=== PATIENT | female | born 1980 | race Two or more races ===

== ENCOUNTER 2024-11-07 09:50 | Emergency (ER) | payer OTHER ==
[~2024-11-07] VITALS: Ht 160 cm; Wt 55.3 kg
[2024-11-07] MEDS ORDERED: PROGESTERONE200 MG PO (09:59)
[2024-11-07] MEDS ORDERED: CLIMARA1 EAC5 TD (09:59)
[2024-11-07] MEDS ORDERED: KETOROLAC TROMETHAMINE 30 MG VIAL ONE (10:43)
[2024-11-07] MEDS ORDERED: FAMOTIDINE/PF 20 MG/2 ML VIAL ONE (10:43)
[2024-11-07] MEDS ORDERED: 0.9 % SODIUM CHLORIDE 1,000 ML IV SCH (10:45)
[2024-11-07] MEDS ORDERED: FAMOTIDINE/PF 20 MG in 0.9 % SODIUM CHLORIDE 8 ML IV PUSH ONE (10:45)
[2024-11-07] MEDS ORDERED: KETOROLAC TROMETHAMINE 15 MG VIAL IU ONE (10:45)
[2024-11-07 11:09] LABS: BASO % 0.5 % (0.1-1.2); EOS # 0.27 (0.04-0.54); EOS % 2.5 % (0.7-7.0); LYMPH # 2.24 (1.18-3.74); LYMPH % 21.1 % (19.3-53.1); MEAN PLATELET VOLUME 10.10 fl (9.4-12.4); MONO # 0.76 (0.24-0.82); MONO % 7.1 % (4.7-12.5); NEUT # 7.30 (1.56-6.13); NEUT % 68.6 % (34.0-71.1); RED CELL DISTRIBUTION WIDTH 12.9 % (11.6-14.4)
[2024-11-07 11:21] LABS: INR 1.0
[2024-11-07 11:28] LABS: ALT/SGPT 18 U/L (12-78); AST/SGOT 14 U/L (15-37); BILIRUBIN TOTAL 0.68 mg/dL (0.3-1.2); BUN CREA RATIO 14 (7.0-25.0); CREATININE SERUM 0.74 mg/dL (0.55-1.02); GFR 84.87; GLOBULINA 3.7 G/DL (2.4-3.5); GLUCOSE FASTING 84 mg/dL (65-100); OSMOLALITY SERUM 285 MOSM/KG (275-295)
[2024-11-07 11:29] LABS: HCG QUANTITATIVE < 1 mUI/mL (1-3)
[2024-11-07] MEDS ORDERED: CIPROFLOXACIN IN 5 % DEXTROSE 200 ML IV ONE (13:00)
[2024-11-07 13:04] LABS: URINE APPEARANCE Clear; URINE BILIRRUBIN Negative (NEGATIVE); URINE BLOOD Negative; URINE COLOR Yellow; URINE GLUCOSE Negative (NEGATIVE); URINE KETONE Negative (NEGATIVE); URINE LEUKOCYTE Negative; URINE NITRATE Negative; URINE PROTEIN Negative (NEGATIVE); URINE UROBILINOGEN 0.2 E.U./dl
[2024-11-07 13:07] LABS: URINE BACTERIA 543.4 uL (0.0-1933); URINE EPITHELIAL CELLS 28.7 uL (0.0-38.8); URINE RBC 3.9 uL (0.0-20.8); URINE WBC 7.6 uL (0.0-23.2)
[2024-11-07 13:12] LABS: URINE CAST 0.43 uL (0.0-1.40)
[2024-11-07] MEDS ORDERED: CIPROFLOXACIN IN 5 % DEXTROSE 400 MG/200 ML PIGGYBAG IV ONE (13:57)
[2024-11-07] MEDS ORDERED: METRONIDAZOLE/SODIUM CHLORIDE 500 MG/100 ML PIGGYBACK IV ONE (13:57)
== END 2024-11-07 18:49 | disposition home or self-care (01) ==
LOC: ER 09:51
PROVIDERS: General Practice
DX: K57.32 Diverticulitis of large intestine without perforation or abscess without bleeding (principal); D25.9 Leiomyoma of uterus, unspecified